=== PATIENT | female | born 1970 | race Caucasian/White ===

== ENCOUNTER → 2019-12-28 17:08 | Outpatient (BNVA) | payer MEDICARE, MEDICAID, SELFPAY | PROVIDERS: Family Provider Nurse Practitioner Family; PCP Nurse Practitioner Family; Visit Provider Family Medicine | DX: E11.8 Type 2 diabetes mellitus with unspecified complications (principal); Z79.4 Long term (current) use of insulin; M85.80 Other specified disorders of bone density and structure, unspecified site; G56.03 Carpal tunnel syndrome, bilateral upper limbs; E78.5 Hyperlipidemia, unspecified; I10 Essential (primary) hypertension; E03.9 Hypothyroidism, unspecified | CPT/HCPCS: 80048; 80061; 83036; 84443 ==

== ENCOUNTER → 2020-04-03 11:09 | Outpatient (BNVA) | payer MEDICARE, MEDICAID, SELFPAY | PROVIDERS: Family Provider Nurse Practitioner Family; PCP Nurse Practitioner Family; Visit Provider Family Medicine | DX: E11.8 Type 2 diabetes mellitus with unspecified complications (principal); Z79.4 Long term (current) use of insulin; M85.80 Other specified disorders of bone density and structure, unspecified site; G56.03 Carpal tunnel syndrome, bilateral upper limbs; E78.5 Hyperlipidemia, unspecified; I10 Essential (primary) hypertension; E03.9 Hypothyroidism, unspecified; R74.8 Abnormal levels of other serum enzymes; K21.9 Gastro-esophageal reflux disease without esophagitis | CPT/HCPCS: 80048; 83036; 84439; 84443; 84481 ==

== ENCOUNTER → 2020-07-06 10:53 | Outpatient (BNVA) | payer MEDICARE, MEDICAID, SELFPAY | PROVIDERS: Family Provider Nurse Practitioner Family; PCP Family Medicine; Visit Provider Family Medicine | DX: E11.9 Type 2 diabetes mellitus without complications (principal); M85.80 Other specified disorders of bone density and structure, unspecified site; G56.03 Carpal tunnel syndrome, bilateral upper limbs; E78.5 Hyperlipidemia, unspecified; I10 Essential (primary) hypertension; E03.9 Hypothyroidism, unspecified; R74.8 Abnormal levels of other serum enzymes; F41.1 Generalized anxiety disorder; K21.9 Gastro-esophageal reflux disease without esophagitis | CPT/HCPCS: 80048; 83036; 84439; 84443; 84481 ==

== ENCOUNTER → 2020-10-24 18:00 | Outpatient (BNVA) | payer OTHER, MEDICARE, MEDICAID, SELFPAY | PROVIDERS: Family Provider Nurse Practitioner Family; PCP Family Medicine; Visit Provider Family Medicine | DX: E11.9 Type 2 diabetes mellitus without complications (principal); Z79.4 Long term (current) use of insulin; I10 Essential (primary) hypertension; E03.9 Hypothyroidism, unspecified; M25.559 Pain in unspecified hip; R74.8 Abnormal levels of other serum enzymes | CPT/HCPCS: 80048; 83036; 84439; 84443; 84481 ==

== ENCOUNTER → 2021-03-28 16:55 | Outpatient (BNVA) | payer MEDICARE, MEDICAID, SELFPAY | PROVIDERS: Family Provider Nurse Practitioner Family; PCP Family Medicine; Visit Provider Family Medicine | DX: E78.5 Hyperlipidemia, unspecified (principal); E03.9 Hypothyroidism, unspecified; E11.8 Type 2 diabetes mellitus with unspecified complications; Z79.4 Long term (current) use of insulin; I10 Essential (primary) hypertension | CPT/HCPCS: 80053; 80061; 83036; 84443 ==

== ENCOUNTER 2021-05-02 16:49 | Emergency (ER) | payer MEDICARE, MEDICAID, SELFPAY ==
[2021-05-02 17:21] VITALS: BP 123/71; PULSE 77; RESP 16; TEMP 36.6; O2SAT 94; BMI 32.1
[2021-05-02] MEDS: TRAMadol 50 mg Tablet PO (19:45)
--- NOTE | 2021-05-02 20:15 | W.ED.RECABL ---
HPI - Recheck/Abnormal Lab/Rx General: Chief Complaint: Recheck/Abnormal Lab/Rx Stated Complaint: wants pain meds Time Seen by Provider: 05/02/21 19:24 History of Present Illness: HPI narrative: Patient states right foot hurts she did not get her pain medication refills that requesting pain medicine. Patient also says she did not get a pair crutches today. She does have a OCL splint on her right lower extremity MD complaint: other (Pain med) Initial visit (ago): hour(s) Initial visit for: other (Fractured foot) Review of Systems Const: Denies: fever(s) or chills Musc: Reports: extremity pain Psych: Denies: anxiety PFSH ED PFSH: Medical History Asthma Bilateral hip pain Carpal tunnel syndrome, bilateral REBECA (generalized anxiety disorder) GERD (gastroesophageal reflux disease) Hypertension, essential, benign Hypothyroidism Mild hyperlipidemia Osteoarthritis Osteopenia Sacroiliac joint pain Seasonal allergies Type 2 diabetes mellitus with complication, with long-term current use of insulin Surgical History H/O section H/O: hysterectomy Family History Mother Heart disease Hypertension Diabetes Cancer Social History (Updated 05/02/21 @ 17:26 by Benson Kinney RN) Smoking and tobacco status: light tobacco smoker Alcohol intake: never Household members: spouse and children Housing: House Marital status: History of recent travel: No Current gender identity: Female Physical Exam Const: COMMON NORMALS: no acute distress Extremity: NARRATIVE EXTREMITY EXAM: OCL splint on right foot Psych: COMMON NORMALS: mental status grossly normal Course Vital Signs: Vital signs: Vital Signs Temperature 97.9 F 05/02/21 17:21 Pulse Rate 77 05/02/21 17:21 Respiratory Rate 16 05/02/21 17:21 Blood Pressure 123/71 05/02/21 17:21 Pulse Oximetry 94 05/02/21 17:21 MDM - Recheck/Abnormal Lab/Rx MDM Narrative: Medical decision making narrative: Patient instructed use crutches directed get her prescription filled and follow-up orthopedic appointment on the has already been made by [facility]. Discharge Plan Discharge Patient Disposition: Home Clinical Impression: Foot fracture, right Qualifiers: Encounter type: subsequent encounter Fracture type: closed Fracture healing: with delayed healing Qualified Code(s): S92.901G - Unspecified fracture of right foot, subsequent encounter for fracture with delayed healing Condition: Stable Prescriptions: No Action albuterol sulfate [Ventolin HFA] 90 mcg/actuation HFA aerosol inhaler 2 puff INHALATION DAILY PRNRF: 0 (DME) blood sugar diagnostic Strip See Rx Instructions .ROUTE .MEDSUPPLY Qty: 10 RF: 0 alendronate [Fosamax] 70 mg tablet 70 mg PO .weekly 28 Days Qty: 4 RF: 5 albuterol sulfate [ProAir HFA] 90 mcg/actuation HFA aerosol inhaler 1 - 2 puff INHALATION .Q4-6h PRN (Reason: WHEEZING, COUGH, SHORTNESS OF BREATH) 30 Days Qty: 18 RF: 5 cetirizine [All Day Allergy (cetirizine)] 10 mg tablet 10 mg PO DAILY 30 Days Qty: 30 RF: 11 fenofibrate nanocrystallized 48 mg tablet 48 mg PO DAILY Qty: 30 RF: 11 Flovent HFA 110 mcg/actuation HFA aerosol inhaler 2 inh INHALATION BID Qty: 12 RF: 5 hydroxyzine HCl 25 mg tablet 25 mg PO BID PRN (Reason: anxiety) Qty: 60 RF: 5 Lantus Solostar U-100 Insulin 100 unit/mL (3 mL) insulin pen See Rx Instructions .ROUTE .COMPLEX Qty: 15 RF: 2 levothyroxine 125 mcg tablet 125 mcg PO DAILY 30 Days Qty: 30 RF: 5 lisinopril-hydrochlorothiazide 20-25 mg tablet 1 tab PO DAILY 30 Days Qty: 30 RF: 5 meloxicam 15 mg tablet 15 mg PO DAILY 30 Days Qty: 30 RF: 5 metformin 1,000 mg tablet 1,000 mg PO BID 30 Days Qty: 60 RF: 5 montelukast 10 mg tablet 10 mg PO .at bedtime 30 Days Qty: 30 RF: 11 Januvia 100 mg tablet 100 mg PO DAILY 30 Days Qty: 30 RF: 5 tizanidine 4 mg capsule 4 mg PO TID PRN (Reason: muscle spasticity) Qty: 60 RF: 5 (DME) pen needle, diabetic [Comfort EZ Pen Freedom] 31 gauge x 5/16 needle See Rx Instructions .ROUTE .MEDSUPPLY Qty: 1,200 RF: 12 atorvastatin 10 mg tablet 10 mg PO DAILY 30 Days Qty: 30 RF: 11 famotidine 40 mg tablet 40 mg PO BID 30 Days Qty: 60 RF: 11 Discharge Orders: Discharge ED (Routine); Ordered 05/02/21 Ordered By: Celso Luo Referrals: Dolores Salinas MD [Primary Care Provider] - Discharge Diet: Usual diet Discharge Activity: Use walker/crutches as instructed Patient Instructions: Opioid Safety Activity Restrictions/Additional Instructions: Keep appointment with Ortho scheduled . Get your prescription filled for your pain medication a doctor [place] can you wrote for you. Use crutches directed. Coding Level of Care Code ED Commercial Housekeeper for Yony Ahuja
== END 2021-05-02 19:49 | disposition home or self-care (01) ==
PROVIDERS: Emergency Provider Nurse Practitioner Family; PCP Family Medicine
DX: S92.901A Unspecified fracture of right foot, initial encounter for closed fracture (principal); Z79.4 Long term (current) use of insulin; I10 Essential (primary) hypertension; E78.2 Mixed hyperlipidemia; E11.9 Type 2 diabetes mellitus without complications; F17.210 Nicotine dependence, cigarettes, uncomplicated; X58.XXXA Exposure to other specified factors, initial encounter
CPT/HCPCS: 99283; E0114

== ENCOUNTER → 2021-07-03 15:00 | Outpatient (BNVA) | payer MEDICARE, MEDICAID, SELFPAY | PROVIDERS: PCP Family Medicine; Visit Provider Family Medicine | DX: R39.9 Unspecified symptoms and signs involving the genitourinary system (principal); E11.8 Type 2 diabetes mellitus with unspecified complications; Z79.4 Long term (current) use of insulin; J44.1 Chronic obstructive pulmonary disease with (acute) exacerbation | CPT/HCPCS: 81000; 83036 ==

== ENCOUNTER → 2021-10-08 14:44 | Outpatient (BNVA) | payer MEDICARE, MEDICAID, SELFPAY | PROVIDERS: PCP Family Medicine; Visit Provider Family Medicine | DX: E11.8 Type 2 diabetes mellitus with unspecified complications (principal); E03.9 Hypothyroidism, unspecified; Z79.4 Long term (current) use of insulin | CPT/HCPCS: 80053; 83036; 84443 ==